=== PATIENT | female | born 1970 | race Caucasian/White ===

== ENCOUNTER 2019-11-18 20:45 | Emergency (ER) | payer MEDICAID ==
[~2019-11-18] VITALS: Ht 162.6 cm; Wt 84.3 kg
[2019-11-18] MEDS ORDERED: OXYcodone/APAP 5/325MG TABLET PO ONE (21:00)
[2019-11-18] MEDS ORDERED: OXYcodone/APAP 5/325MG TABLET ONE (21:15)
[2019-11-18 22:02] VITALS: BP 138/76
== END 2019-11-18 22:10 | disposition home or self-care (01) ==
LOC: ED 22:08
DX: G89.11 Acute pain due to trauma (principal); M25.461 Effusion, right knee; I10 Essential (primary) hypertension; W01.0XXA Fall on same level from slipping, tripping and stumbling without subsequent striking against object, initial encounter; Y93.89 Activity, other specified; Y92.89 Other specified places as the place of occurrence of the external cause; Y99.8 Other external cause status
CPT/HCPCS: 99283